=== PATIENT | male | born 1965 | race American Indian/Alaskan Native ===

== ENCOUNTER 2021-02-01 06:41 | Observation (INO) | payer OTHER ==
--- NOTE | 2021-01-29 10:03 | Anesthesia Consultation ---
Anesthesia Consult and Med Hx Date of service: 01/29/21 - Airway Anesthetic Teeth Evaluation: Good ROM Head & Neck: Adequate Mental/Hyoid Distance: Adequate Mallampati Class: Class III Intubation Access Assessment: Possibly Difficult - Pulmonary Exam CTA: Yes - Cardiac Exam Cardiac Exam: RRR - Pre-Operative Health Status ASA Pre-Surgery Classification: ASA2 Proposed Anesthetic Plan: General Nerve Block: TAP - Pulmonary Hx Smoking: No Hx Respiratory Symptoms: No Hx Sleep Apnea: No (DERIAN PRE SCREEN HIGH RISK) - Cardiovascular System Hx Hypertension: Yes Hx Heart Attack/AMI: No Hx Percutaneous Transluminal Coronary Angioplasty (PTCA): No Hx Cardia Arrhythmia: No - Central Nervous System CVA: No Hx Back Pain: Yes - Endocrine Hx Renal Disease: No Hx Liver Disease: No Hx Insulin Dependent Diabetes: No Hx Non-Insulin Dependent Diabetes: No Hx Thyroid Disease: No - Other Systems Hx Cancer: Yes (prostate ca) Hx Obesity: Yes (BMI 33) - Additional Comments Anesthesia Medical History Comments: No prior GA. No FHx anesthetic complications. Hypertensive in preassessment and reports that he did not take antihypertensives today yet. Instructed to take BP meds morning of surgery.
[2021-01-29 10:51] LABS: Hematocrit 47.7 % (35.5-45.6); Hemoglobin 15.8 gm/dl (11.8-15.2); Mean Corpuscular HGB Conc 33 % (32-34); Mean Corpuscular Volume 89 fl (84-94); Platelet Count 221 K/mm3 (140-440); Red Blood Count 5.35 M/mm3 (3.65-5.03); Red Cell Distribution Width 14.5 % (13.2-15.2)
[2021-01-29 11:43] LABS: Alanine Aminotransferase 54 units/L (7-56); Albumin 4.3 g/dL (3.9-5); BUN/Creatinine Ratio 12; Blood Urea Nitrogen 13 mg/dL (9-20); Calcium 9.2 mg/dL (8.4-10.2); Hemolysis Index 7
[~2021-02-01 06:41] MED LIST: ACETAMINOPHEN 500 MG TAB PO SCH; BACTERIOSTATIC SODIUM CHLORIDE 0.9% 30 ML VIAL INFILTRATI ONE; CELECOXIB 200 MG CAP PO NR; GABAPENTIN 300 MG CAP PO NR; LACTATED RINGERS 1,000 ML IV SCH; MIDAZOLAM 2 MG/2 ML INJ IV NR; fentaNYL 100 MCG/2 ML INJ IV PRN
[2021-02-01] MEDS ORDERED: ceFAZolin/STERILE WATER 2 GM/20 ML SYRINGE IV NR (07:00)
[2021-02-01] MEDS ORDERED: HYDROmorphone 1 MG/1 ML INJ IV PRN (07:09)
--- NOTE | 2021-02-01 07:10 | Anesthesia Day of Surgery ---
Anesthesia Day of Surgery - Day of Surgery Patient Examined: Yes Patient H&P Reviewed: Yes Patient is NPO: Yes
[2021-02-01] MEDS ORDERED: BUPIVACAINE-EPINEPHRINE/PF 0.25%-1:200,000 (30 ML) VIAL INFILTRATI ONE (07:12)
[2021-02-01] MEDS ORDERED: BUPIVACAINE/PF (0.25%) 2.5 MG/ML 30 ML VIAL INFILTRATI ONE (07:12)
[2021-02-01] MEDS ORDERED: dexAMETHasone 4 MG/ML VIAL ONE (07:13)
[2021-02-01] MEDS ORDERED: METHYLENE BLUE 50 MG/10 ML AMP ONE (07:25)
[2021-02-01] MEDS ORDERED: CITRIC ACID-SOD CITRATE 500 ML IV ONE (07:33)
[2021-02-01] MEDS ORDERED: ROCURONIUM 50 MG/5 ML INJ IV ONE ×2 (07:51→09:25)
[2021-02-01] MEDS ORDERED: ONDANSETRON 4 MG/2 ML INJ ONE (07:51)
[2021-02-01] MEDS ORDERED: dexAMETHasone 20 MG/5 ML VIAL ONE (07:51)
[2021-02-01] MEDS ORDERED: propofoL 200 MG/20 ML VIAL IV ONE (07:52)
[2021-02-01] MEDS ORDERED: LIDOCAINE MPF (2%) 20 MG/1 ML VIAL 5 ML ONE (07:52)
[2021-02-01] MEDS ORDERED: KETAMINE/STERILE WATER 50 MG/ML SYRINGE ONE (07:52)
[2021-02-01] MEDS ORDERED: fentaNYL 100 MCG/2 ML INJ ONE (07:52)
[2021-02-01] MEDS ORDERED: ONDANSETRON 4 MG/2 ML INJ IV PRN (08:00)
[2021-02-01] MEDS ORDERED: CALCIUM CHLORIDE 1,000 MG/10 ML SYRINGE IV ONE ×2 (08:00→08:04)
[2021-02-01] MEDS ORDERED: THROMBIN (RECOMBINANT) 5,000 UNIT VIAL TP ONE ×2 (08:00→09:04)
[2021-02-01] MEDS ORDERED: CITRIC ACID-SOD CITRATE SOLN 500 ML IV SOLN IV ONE (09:04)
[2021-02-01] MEDS ORDERED: WATER FOR IRRIG STERILE 1,500 ML BOTTLE IR ONE (09:04)
[2021-02-01] MEDS ORDERED: SODIUM CHLORIDE 0.9% IRRIG SOLN 2000 ML IR ONE (09:04)
[2021-02-01] MEDS ORDERED: ePHEDrine SULFATE 50 MG/1 ML INJ ONE (09:16)
[2021-02-01] MEDS ORDERED: METHYLENE BLUE 50 MG/10 ML AMP IV ONE (10:30)
[2021-02-01] MEDS ORDERED: LACTATED RINGERS 1,000 ML ONE (10:46)
[2021-02-01] MEDS ORDERED: NEOSTIGMINE 10MG/10 ML INJ MDV ONE (10:53)
[2021-02-01] MEDS ORDERED: GLYCOPYRROLATE 0.4 MG/2 ML INJ ONE ×2 (10:53)
--- NOTE | 2021-02-01 11:06 | Short Stay Summary ---
Short Stay Documentation Date of service: 02/01/21 - History H&P: obtained from office - Allergies and Medications Current Medications: Allergies No Known Allergies Allergy (Verified 01/21/21 12:51) Home Medications Medication Instructions Recorded Confirmed Last Taken Type Atenolol 25 mg PO DAILY 01/20/21 01/20/21 02/01/21 06:10 History NIFEdipine 60 mg PO DAILY 01/20/21 01/20/21 02/01/21 06:10 History Active Medications Acetaminophen (Acetaminophen 500 Mg Tab) 1,000 mg PO PREOP PRANAV Stop: 02/01/21 20:00 Last Admin: 02/01/21 07:10 Dose: 1,000 mg Documented by: Cefazolin Sodium (Cefazolin/Sterile Water 2 Gm/20 Ml Syringe) 2 gm IV PREOP NR Stop: 02/01/21 20:00 Celecoxib (Celecoxib 200 Mg Cap) 200 mg PO PREOP NR Stop: 02/01/21 20:00 Last Admin: 02/01/21 07:10 Dose: 200 mg Documented by: Fentanyl (Fentanyl 100 Mcg/2 Ml Inj) 100 mcg IV ONCE PRN PRN Reason: sedation for nerve block Stop: 02/01/21 20:00 Last Admin: 02/01/21 07:28 Dose: 100 mcg Documented by: Gabapentin (Gabapentin 300 Mg Cap) 300 mg PO PREOP NR Stop: 02/01/21 20:00 Last Admin: 02/01/21 07:10 Dose: 300 mg Documented by: Hydromorphone HCl (Hydromorphone 1 Mg/1 Ml Inj) 0.25 mg IV Q10MIN PRN PRN Reason: Pain, Moderate (4-6) Stop: 02/01/21 23:00 Hydromorphone HCl (Hydromorphone 1 Mg/1 Ml Inj) 0.5 mg IV Q10MIN PRN PRN Reason: Pain , Severe (7-10) Stop: 02/01/21 23:00 Lactated Ringer's (Lactated Ringers) 1,000 mls @ 100 mls/hr IV DIRECT PRANAV Stop: 02/01/21 23:59 Last Admin: 02/01/21 07:10 Dose: 100 mls/hr Documented by: Midazolam HCl (Midazolam 2 Mg/2 Ml Inj) 2 mg IV PREOP NR Stop: 02/01/21 20:00 Last Admin: 02/01/21 07:28 Dose: 2 mg Documented by: Ondansetron HCl (Ondansetron 4 Mg/2 Ml Inj) 4 mg IV ONCE PRN PRN Reason: Nausea And Vomiting Stop: 02/01/21 13:00 - Brief post op/procedure progress note Date of procedure: 02/01/21 Pre-op diagnosis: prostate cancer Post-op diagnosis: same Procedure: robotic prostatectomy, stem cells, Anesthesia: GETA Surgeon: LYLE THOMAS Estimated blood loss: other (250cc) Pathology: list (prostate) Specimen disposition: to lab Condition: stable - Hospital course Hospital course: pt has bactrim,norco,post op info at home dc haresh dc home with daniels - Disposition Condition at discharge: Stable Short Stay Discharge Plan Follow up with: BORIS GA MD [Primary Care Provider] - 7 Days
[2021-02-01] MEDS ORDERED: ACETAMINOPHEN 325 MG TAB PO PRN (11:09)
[2021-02-01] MEDS ORDERED: HYDROcodone/ACETAMINOPHEN 5-325 MG TAB PO PRN (11:09)
[2021-02-01] MEDS ORDERED: NALOXONE 0.4 MG/1 ML INJ IV PRN (11:09)
--- NOTE | 2021-02-01 11:54 | Operative Report ---
DATE OF SURGERY: 02/01/2021 PREOPERATIVE DIAGNOSIS: Prostate cancer, [place] 6. POSTOPERATIVE DIAGNOSIS: Prostate cancer, [place] 6. PROCEDURES: Robotic-assisted laparoscopic prostatectomy, stem cell implant, bladder neck suspension. SURGEON: Navi Amezcua MD ANESTHESIA: General. TECHNICAL CABLE JOINTER: Kathy Yanez. ESTIMATED BLOOD LOSS: 250 mL. FLUIDS: Crystalloid. DRAINS: Dago-Barnes drain. COMPLICATIONS: No complications. INDICATIONS: This 55-year-old gentleman was seen in the office for an elevated PSA of 5. He underwent transrectal ultrasound and biopsies of prostate, was found to have [place] 6 adenocarcinoma of the prostate for 14 cores in 2018. He underwent active surveillance; however, his PSA went up to 9. We discussed options. He agreed to proceed with surgical intervention. Risks, benefits and complications were explained to the patient and his . DESCRIPTION OF PROCEDURE: The patient was taken to the operative suite, placed in a supine position. After adequate general anesthesia, was placed in a modified dorsal lithotomy position, prepped and draped in a sterile fashion. Aguilar catheter was placed on the operative field. A 1 cm supraumbilical incision was made with a Bovie. Towel clips were placed. Veress needle was used for drop test, which was negative. Opening pressure was 1 cm of water. Insufflation of the abdomen to 15 cm of water was performed without difficulty. The abdomen was marked starting at the suprapubic symphysis. A 15 cm cephalad was marked and additional 10 cm lateral was used for the 8 mm robotic ports on the left. Also on the right, a 10 mm helper port and a 5 mm helper port were placed. A 0-degree lens was used to insert the robotic port under direct vision. No signs of bleeding or injury could be appreciated. Robotic cart was docked between the legs. The rest of the ports were placed under direct vision. Observation of the peritoneal cavity, no signs of bleeding or metastasis could be appreciated. The patient was placed in exaggerated Trendelenburg position. Second arch of the posterior prostate could be appreciated. It was scored dissecting to expose the seminal vesicles and vas deferens. Dissection to the apex of the prostate was performed without difficulty. The patient had a fair amount of adipose tissue throughout the abdomen. Vas deferens were identified, dissected out and transected. Next, attention was taken to the anterior abdominal wall. Lateral to the anterior umbilical ligament was scored bilaterally and then across the midline to allow the bladder flap. Dissection to the pubic rami bilaterally was performed. Bladder flap was dropped. The endopelvic fascia was identified, transected. Dorsal vein complex was controlled with a 60 mm vascular stapler. Next, attention was taken to the anterior bladder neck, which was transected exposing the Aguilar catheter. It was dissected free and put to the end and retracted anteriorly. Posterior aspect of the bladder neck was transected exposing the seminal vesicles and vas deferens, which were pulled up anteriorly. The lateral pedicles were controlled with a 60 mm vascular stapler. Using the tete, dissection of the apex of the prostate was performed without difficulty. Prostate was then placed in the EndoCatch bag. Copious irrigation was performed. Adequate hemostasis was achieved. The bladder neck was reconstructed to allow 18-Lith[place]ian Aguilar catheter placement. Reconstruction using a 2-0 Vicryl at the 5 o'clock and 7 o'clock positions in an interrupted fashion. Double armed V-Loc stitch was placed in the 6 o'clock position of the bladder neck. Corresponding aspect of the urethra, a running stitch was performed bilaterally. A new 18-Lithuanian Aguilar catheter was placed without difficulty. Anastomosis was cinched down. A 15 mL in the balloon was placed, it irrigated, no clots. At that point, the V-Loc stitch was then placed in the posterior aspect of the pubic rami for a bladder and slight tension for bladder neck suspension. [place] were removed without difficulty. Stem cells were then placed on the lateral aspect of the rectum bilaterally. Platelet rich plasma and platelet poor plasma was injected around the urethra. A 10 mm Dago-Barnes drain was then brought out through 8 mm port on the left side, secured to the skin with a 2-0 silk. The robotic cart was undocked. The supraumbilical incision was extended to allow removal of the prostate in the EndoCatch bag. A supraumbilical incision was closed with 0 Vicryl in a [id number] fashion. Skin was closed with a 3-0 Vicryl in an interrupted fashion. Aguilar catheter sideport was folded and tied with a 0 silk in interrupted fashion. Kathy Yanez was at the bedside to assist throughout the procedure. The patient tolerated the procedure well and was extubated and taken to recovery room. He will be observed overnight and go home on Bactrim and [place]. TID: [id number] RECEIPT: [id number] PINA/DENNISE CHAVARRIA
[2021-02-01] MEDS: HYDROmorphone 1 MG/1 ML INJ IV PRN ×2 (12:10→12:20)
[2021-02-01] MEDS: MORPHINE 4 MG/1 ML INJ IV PRN ×2 (15:01→22:23)
--- NOTE | 2021-02-01 16:41 | Post Anesthesia Evaluation ---
- Post Anesthesia Evaluation Patient Participated: Yes Airway Patent: Yes Stable Respiratory Function: Yes Nausea/Vomiting: No Temp > 96.8F: Yes Pain Manageable: Yes Adequeate Hydration: Yes Anesthesia Complications: No Block Receding Appropriately: Yes Patient on Ventilator: No
[2021-02-01] MEDS: LACTATED RINGERS 1,000 ML IV SCH ×2 (18:07→23:41)
[2021-02-01] MEDS: ceFAZolin/NS 1 GM/50 ML 1 GM/50 ML BAG IV SCH (18:22)
--- NOTE | 2021-02-01 21:00 | Consultation ---
History of Present Illness - Reason for Consult Consult date: 02/01/21 Medical management Requesting physician: LYLE THOMAS - History of Present Illness 55-year-old admitted for observation after s/p robotic prostatectomy. Postop patient doing well. Patient has history of hypertension. No shortness of breath or chest pain or dysuria. Past History Past Medical History: hypertension Past Surgical History: Other (Robotic prostatectomy) Social history: lives with family, full code Family history: hypertension Medications and Allergies Allergies Allergy/AdvReac Type Severity Reaction Status Date / Time No Known Allergies Allergy Verified 01/21/21 12:51 Home Medications Medication Instructions Recorded Confirmed Last Taken Type Atenolol 25 mg PO DAILY 01/20/21 01/20/21 02/01/21 06:10 History NIFEdipine 60 mg PO DAILY 01/20/21 01/20/21 02/01/21 06:10 History Active Meds: Active Medications Acetaminophen (Acetaminophen 325 Mg Tab) 650 mg PO Q4H PRN PRN Reason: Pain, Mild (1-3)/Fever > 100.5 Hydrocodone Bitart/Acetaminophen (Hydrocodone/Acetaminophen 5-325 Mg Tab) 2 each PO Q4H PRN PRN Reason: Pain, Moderate (4-6) Atenolol (Atenolol 25 Mg Tab) 25 mg PO QDAY PRANAV Hydromorphone HCl (Hydromorphone 1 Mg/1 Ml Inj) 0.25 mg IV Q10MIN PRN PRN Reason: Pain, Moderate (4-6) Stop: 02/01/21 23:00 Hydromorphone HCl (Hydromorphone 1 Mg/1 Ml Inj) 0.5 mg IV Q10MIN PRN PRN Reason: Pain , Severe (7-10) Stop: 02/01/21 23:00 Last Admin: 02/01/21 12:20 Dose: 0.5 mg Documented by: Lactated Ringer's (Lactated Ringers) 1,000 mls @ 100 mls/hr IV DIRECT PRANAV Stop: 02/01/21 23:59 Last Admin: 02/01/21 07:10 Dose: 100 mls/hr Documented by: Lactated Ringer's (Lactated Ringers) 1,000 mls @ 125 mls/hr IV DIRECT PRANAV Last Admin: 02/01/21 18:07 Dose: 125 mls/hr Documented by: Cefazolin Sodium (Ancef/Ns 1 Gm/50 Ml) 1 gm in 50 mls @ 100 mls/hr IV Q8H [facility]; Protocol Stop: 02/02/21 02:29 Last Admin: 02/01/21 18:22 Dose: 100 mls/hr Documented by: Morphine Sulfate (Morphine 4 Mg/1 Ml Inj) 4 mg IV Q4H PRN PRN Reason: Pain , Severe (7-10) Last Admin: 02/01/21 15:01 Dose: 4 mg Documented by: Naloxone HCl (Naloxone 0.4 Mg/1 Ml Inj) 0.1 mg IV Q2MIN PRN PRN Reason: Res Rate </= 8 or 02 SAT < 92% Nifedipine (Nifedipine Xl 60 Mg Tab) 60 mg PO QDAY [facility] Review of Systems All systems: negative Exam - Constitutional Vitals: Temp Pulse Resp BP Pulse Ox 98.0 F 71 19 147/94 98 02/01/21 17:24 02/01/21 17:24 02/01/21 17:24 02/01/21 17:24 02/01/21 17:24 General appearance: Present: no acute distress, well-nourished - EENT Eyes: Present: PERRL ENT: hearing intact, clear oral mucosa - Neck Neck: Present: supple, normal ROM - Respiratory Respiratory effort: normal Respiratory: bilateral: CTA - Cardiovascular Heart rate: 78 Rhythm: regular Heart Sounds: Present: S1 & S2. Absent: rub, click - Extremities Extremities: pulses symmetrical, No edema Peripheral Pulses: within normal limits - Abdominal General gastrointestinal: Present: soft, non-tender, non-distended, normal bowel sounds Male genitourinary: Present: normal - Integumentary Integumentary: Present: clear, warm, dry - Musculoskeletal Musculoskeletal: gait normal, strength equal bilaterally - Psychiatric Psychiatric: appropriate mood/affect, intact judgment & insight - Neurologic Neurologic: CNII-XII intact, moves all extremities Results - Labs CBC & Chem 7: 02/02/21 05:05 02/02/21 05:25 Labs: Abnormal lab results 02/01/21 Range/Units 17:24 POC Glucose 114 H (70-105) mg/dL Assessment and Plan - Patient Problems (1) HTN (hypertension) Current Visit: Yes Status: Chronic Qualifiers: Hypertension type: primary hypertension Qualified Code(s): I10 - Essential (primary) hypertension Plan to address problem: Continue atenolol and Nifedipine Adjust medication as necessary (2) CYNTHIA (acute kidney injury) Current Visit: Yes Status: Acute Plan to address problem: IV fluids for now Repeat creatinine level (3) DVT prophylaxis Current Visit: Yes Status: Acute
[2021-02-02] MEDS ORDERED: hydrALAZINE 20 MG/1 ML INJ IV PRN (00:25)
[2021-02-02] MEDS ORDERED: ONDANSETRON 4 MG/2 ML INJ IV PRN (00:30)
[2021-02-02] MEDS: ceFAZolin/NS 1 GM/50 ML 1 GM/50 ML BAG IV SCH (01:00)
[2021-02-02 06:33] LABS: Hematocrit 43.6 % (35.5-45.6); Hemoglobin 14.5 gm/dl (11.8-15.2); Lymphocytes # (Auto) 1.8 K/mm3 (1.2-5.4); Lymphocytes % (Auto) 12.9 % (13.4-35.0); Mean Corpuscular HGB Conc 33 % (32-34); Mean Corpuscular Volume 90 fl (84-94); Platelet Count 200 K/mm3 (140-440); Red Blood Count 4.83 M/mm3 (3.65-5.03); Red Cell Distribution Width 14.4 % (13.2-15.2)
[2021-02-02] MEDS: MORPHINE 4 MG/1 ML INJ IV PRN ×2 (07:01→14:35)
[2021-02-02 07:25] LABS: BUN/Creatinine Ratio 11; Blood Urea Nitrogen 15 mg/dL (9-20); Calcium 9.2 mg/dL (8.4-10.2); Hemolysis Index 3
[2021-02-02] MEDS ORDERED: SODIUM CHLORIDE 0.9% 1000 ML 1,000 ML IV SCH (08:00)
[2021-02-02 09:49] LABS: Calcium 8.6 mg/dL (8.4-10.2)
[2021-02-02] MEDS ORDERED: NIFEdipine XL 60 MG TAB PO SCH (10:00)
[2021-02-02] MEDS ORDERED: atenoloL 25 MG TAB PO SCH (10:00)
[2021-02-02] MEDS ORDERED: NON-FORMULARY EACH (Atenolol 25 MG) PO SCH (10:00)
[2021-02-02] MEDS ORDERED: NON-FORMULARY EACH (Nifedipine 60 MG) PO SCH (10:00)
[2021-02-02] MEDS ORDERED: ceFAZolin/NS 1 GM/50 ML 1 GM/50 ML BAG IV ONE (11:02)
--- NOTE | 2021-02-02 15:49 | Progress Note ---
Assessment and Plan Assessment and plan: S/p prostatectomy for prostate cancer, PSA 11 Postoperatively stable Hypertension, controlled CYNTHIA, resolving Postoperative leukocytosis, on Ancef and to be discharged on Bactrim Afebrile Discharge disposition: Patient is alert and oriented with stable vital signs. Afebrile. He is tolerating some diet. Has some postop abdominal pain. Patient denies chest pains or dyspnea. He has indwelling Aguilar. Also on Flomax. No hematuria. He will be discharged home today after completing the Ancef and Bactrim. WBC feliciano from 5.3-14 and creatinine improved from 1.1-1.4. He will be followed by urology in 1 week. . History Interval history: Patient is alert and oriented with stable vital signs. Afebrile. He is tolerating some diet. Has some postop abdominal pain. Patient denies chest pains or dyspnea. He has indwelling Aguilar. Also on Flomax. No hematuria. He will be discharged home today after completing the Ancef and Bactrim. WBC feliciano from 5.3-14 and creatinine improved from 1.1-1.4. He will be followed by urology in 1 week. Hospitalist Physical - Constitutional Vitals: Temp Pulse Resp BP Pulse Ox 98.1 F 84 18 169/94 96 02/02/21 11:25 02/02/21 11:25 02/02/21 11:25 02/02/21 11:25 02/02/21 11:25 General appearance: Present: no acute distress, well-nourished, other (Obese) - EENT Eyes: Present: PERRL, EOM intact ENT: clear oral mucosa - Neck Neck: Present: supple - Respiratory Respiratory effort: normal Respiratory: bilateral: CTA - Cardiovascular Rhythm: regular - Abdominal General gastrointestinal: other (Mild postoperative distention with some tenderness as expected. Bowel sounds present.) - Integumentary Integumentary: Absent: rash - Psychiatric Psychiatric: appropriate mood/affect - Neurologic Neurologic: other (Alert and oriented, nonfocal motor exam) - Additional findings Additional findings: Genitourinary: Indwelling Aguilar, no hematuria Results - Labs CBC & Chem 7: 02/02/21 05:05 02/02/21 09:18 Labs: Laboratory Last Values WBC 14.0 K/mm3 (4.5-11.0) H 02/02/21 05:05 RBC 4.83 M/mm3 (3.65-5.03) 02/02/21 05:05 Hgb 14.5 gm/dl (11.8-15.2) 02/02/21 05:05 Hct 43.6 % (35.5-45.6) 02/02/21 05:05 MCV 90 fl (84-94) 02/02/21 05:05 MCH 30 pg (28-32) 02/02/21 05:05 MCHC 33 % (32-34) 02/02/21 05:05 RDW 14.4 % (13.2-15.2) 02/02/21 05:05 Plt Count 200 K/mm3 (140-440) 02/02/21 05:05 Lymph % (Auto) 12.9 % (13.4-35.0) L 02/02/21 05:05 [place] % (Auto) 7.0 % (0.0-7.3) 02/02/21 05:05 Eos % (Auto) 0.0 % (0.0-4.3) 02/02/21 05:05 Baso % (Auto) 0.0 % (0.0-1.8) 02/02/21 05:05 Lymph # (Auto) 1.8 K/mm3 (1.2-5.4) 02/02/21 05:05 [place] # (Auto) 1.0 K/mm3 (0.0-0.8) H 02/02/21 05:05 Eos # (Auto) 0.0 K/mm3 (0.0-0.4) 02/02/21 05:05 Baso # (Auto) 0.0 K/mm3 (0.0-0.1) 02/02/21 05:05 Seg Neutrophils % 80.1 % (40.0-70.0) H 02/02/21 05:05 Seg Neutrophils # 11.2 K/mm3 (1.8-7.7) H 02/02/21 05:05 Sodium 138 mmol/L (137-145) 02/02/21 09:18 Potassium 4.4 mmol/L (3.6-5.0) 02/02/21 09:18 Chloride 103.8 mmol/L (98-107) 02/02/21 09:18 Carbon Dioxide 23 mmol/L (22-30) 02/02/21 09:18 Anion Gap 16 mmol/L 02/02/21 09:18 BUN 15 mg/dL (9-20) 02/02/21 09:18 Creatinine 1.5 mg/dL (0.8-1.3) H 02/02/21 09:18 Estimated GFR 59 ml/min 02/02/21 09:18 BUN/Creatinine Ratio 10 % 02/02/21 09:18 Glucose 126 mg/dL (75-100) H 02/02/21 09:18 POC Glucose 114 mg/dL (70-105) H 02/01/21 17:24 Calcium 8.6 mg/dL (8.4-10.2) 02/02/21 09:18 Total Bilirubin 0.50 mg/dL (0.1-1.2) 01/28/21 10:38 AST 25 units/L (5-40) 01/28/21 10:38 ALT 54 units/L (7-56) 01/28/21 10:38 Alkaline Phosphatase 79 units/L (35-129) 01/28/21 10:38 Total Protein 7.6 g/dL (6.3-8.2) 01/28/21 10:38 Albumin 4.3 g/dL (3.9-5) 01/28/21 10:38 Albumin/Globulin Ratio 1.3 % 01/28/21 10:38 Coronavirus (PCR) Negative (Negative) 01/29/21 10:25 Blood Type O POSITIVE 02/01/21 07:10 Antibody Screen Negative 02/01/21 07:10 Aguilar/IV: Voiding Method Indwelling Catheter Active Medications - Current Medications Current Medications: Generic Name Dose Route Start Last Admin Trade Name Freq PRN Reason Stop Dose Admin Acetaminophen 650 mg 02/01/21 11:09 Acetaminophen 325 Mg Tab PO Q4H PRN Pain, Mild (1-3)/Fever > 100.5 Hydrocodone Bitart/Acetaminophen 2 each 02/01/21 11:09 Hydrocodone/Acetaminophen 5-325 Mg Tab PO Q4H PRN Pain, Moderate (4-6) Atenolol 25 mg 02/02/21 10:00 02/02/21 09:48 Atenolol 25 Mg Tab PO 25 mg QDAY PRANAV Administration Hydralazine HCl 10 mg 02/02/21 00:25 Hydralazine 20 Mg/1 Ml Inj IV Q6H PRN Blood Pressure Sodium Chloride 1,000 mls @ 75 mls/hr 02/02/21 08:00 02/02/21 09:52 Nacl 0.9% 1000 Ml IV 75 mls/hr DIRECT PRANAV Administration Morphine Sulfate 4 mg 02/01/21 11:09 02/02/21 14:35 Morphine 4 Mg/1 Ml Inj IV 4 mg Q4H PRN Administration Pain , Severe (7-10) Naloxone HCl 0.1 mg 02/01/21 11:09 Naloxone 0.4 Mg/1 Ml Inj IV Q2MIN PRN Res Rate </= 8 or 02 SAT < 92% Nifedipine 60 mg 02/02/21 10:00 02/02/21 09:48 Nifedipine Xl 60 Mg Tab PO 60 mg QDAY PRANAV Administration Ondansetron HCl 4 mg 02/02/21 00:30 02/02/21 00:49 Ondansetron 4 Mg/2 Ml Inj IV 4 mg Q6H PRN Administration Nausea And Vomiting
[2021-02-02 16:48] VITALS: BP 178/88
== END 2021-02-02 18:33 | disposition home or self-care (01) ==
LOC: OR 06:41 → 3A 11:09
PROVIDERS: ADMIT Urology; ATTEND Urology
DX: C61 Malignant neoplasm of prostate (principal); Z20.822 Contact with and (suspected) exposure to COVID-19; I10 Essential (primary) hypertension; N17.9 Acute kidney failure, unspecified; D72.829 Elevated white blood cell count, unspecified; R50.9 Fever, unspecified
CPT/HCPCS: 36415; 55866; 64450; 80048; 80053; 82962; 85025; 85027; 86850; 86900; 86901; 88309; 96361; 96365; 96366; 96375; 96376; A4217; G0378; J0360; J0690; J1100; J1170; J2250; J2270; J2405; J2704; J2710; J3010; J3490; J7030; J7120; Q4140; Q9968; S2900; U0003